=== PATIENT | female | born 1965 | race Caucasian/White ===

== ENCOUNTER → 2016-04-22 | Outpatient (CLI) | payer BC | LOC: MC.RAD 09:40 | DX: Z12.31 Encounter for screening mammogram for malignant neoplasm of breast (principal) ==

== ENCOUNTER → 2017-06-12 | Outpatient (CLI) | payer BC | LOC: MC.RAD 12:57 | DX: Z12.31 Encounter for screening mammogram for malignant neoplasm of breast (principal); N63.11 Unspecified lump in the right breast, upper outer quadrant ==

== ENCOUNTER → 2017-06-18 | Outpatient (CLI) | payer BC | LOC: MC.RAD 09:58 | DX: N63.11 Unspecified lump in the right breast, upper outer quadrant (principal) ==

== ENCOUNTER → 2018-07-20 | Outpatient (CLI) | payer BC | LOC: MC.RAD 14:53 | DX: Z12.31 Encounter for screening mammogram for malignant neoplasm of breast (principal); N63.10 Unspecified lump in the right breast, unspecified quadrant; N63.20 Unspecified lump in the left breast, unspecified quadrant; R92.0 Mammographic microcalcification found on diagnostic imaging of breast ==

== ENCOUNTER 2020-08-07 09:15 | Outpatient (RCR) | payer BC | END 2020-08-14 08:41 | disposition home or self-care (01) | LOC: WSPT 09:15 | DX: Z00.00 Encounter for general adult medical examination without abnormal findings (principal); M79.645 Pain in left finger(s); M25.551 Pain in right hip; N63.10 Unspecified lump in the right breast, unspecified quadrant; N63.20 Unspecified lump in the left breast, unspecified quadrant; N94.10 Unspecified dyspareunia; F51.01 Primary insomnia; F34.1 Dysthymic disorder; L91.8 Other hypertrophic disorders of the skin; G89.29 Other chronic pain ==

== ENCOUNTER 2020-08-22 09:00 | Outpatient (RCR) | payer BC | END 2020-10-05 15:14 | disposition home or self-care (01) | LOC: WSOT 09:00 | DX: M79.645 Pain in left finger(s) (principal) ==

== ENCOUNTER → 2021-07-12 | Outpatient (CLI) | payer BC | LOC: MC.RAD 07:54 | DX: R92.0 Mammographic microcalcification found on diagnostic imaging of breast (principal) ==

== ENCOUNTER → 2021-07-24 | Outpatient (CLI) | payer BC | LOC: MC.RAD 10:48 | DX: R92.0 Mammographic microcalcification found on diagnostic imaging of breast (principal); Z98.82 Breast implant status ==

== ENCOUNTER 2021-08-16 07:59 | Day surgery (SDC) | payer BC ==
[~2021-08-16] VITALS: Ht 166.4 cm; Wt 29.9 kg
[2021-08-16] MEDS ORDERED: WELLBUTRIN XL300 M1 PO (08:38)
[2021-08-16] MEDS ORDERED: SYNTHROID 0.0.025 MG PO (08:38)
[2021-08-16] MEDS ORDERED: DESYREL 100MG100 MG PO (08:38)
[2021-08-16] MEDS ORDERED: NATURAL IRON65 MG PO (08:38)
[2021-08-16] MEDS ORDERED: ESTRACE0.1 MG/GM VG (08:39)
[2021-08-16] MEDS ORDERED: B-121000 MCG PO (08:40)
[2021-08-16] MEDS ORDERED: MAG-OX 400400 MG/TAB PO (08:41)
[2021-08-16] MEDS ORDERED: ALLEGRA 180MG180 MG PO (08:41)
[2021-08-16] MEDS ORDERED: NATURAL E400 IU PO (08:42)
[2021-08-16] MEDS ORDERED: OMEGA-3 1000 MG1 CAP PO (08:42)
[2021-08-16] MEDS ORDERED: VITAMIN D31000 I1 PO (08:42)
[2021-08-16 08:51] VITALS: BP 102/61; PULSE 82; TEMP 97.6
[2021-08-16 11:05] VITALS: BP 101/63; PULSE 68
[2021-08-16 11:25] VITALS: BP 103/65; PULSE 70; TEMP 98.2
[2021-08-16 11:32] VITALS: BP 93/60; PULSE 67; TEMP 98.2
--- NOTE | 2021-08-16 11:33 | NUR ---
patient arrived back from endoscopy at this time, alert/oriented, vital signs stable, denies pain/discomfort or nausea, already tolerating PO liquid, present, will continue to monitor
--- NOTE | 2021-08-16 11:37 | NUR ---
patient continues to do well, vitals remain stable, denies pain/ N/V, tolerating Po intake, has been by to discuss procedural findings, present at bedside, I have discussed discharge instructions with them, removed the IV and will escort them out the door
== END 2021-08-16 11:40 | disposition home or self-care (01) ==
LOC: SDCO 07:59
DX: D50.9 Iron deficiency anemia, unspecified (principal); K55.20 Angiodysplasia of colon without hemorrhage; K64.0 First degree hemorrhoids; K62.89 Other specified diseases of anus and rectum
CPT/HCPCS: J2704; J7030